=== PATIENT | female | born 1980 | race Caucasian/White ===

== ENCOUNTER 2017-03-09 14:46 | Emergency (ER) | payer SELFPAY ==
[~2017-03-09] VITALS: Ht 165.1 cm; Wt 74.0 kg
[~2017-03-09 14:46] MED LIST: ACYCLOVIR; FOLI0.4T2 PO; PREN1TAB49 PO
[2017-03-09 14:50] VITALS: Ht 165.1 cm; Wt 74.0 kg
== END 2017-03-09 16:55 | disposition left against medical advice (07) ==
LOC: E/R 14:46
DX: Z53.21 Procedure and treatment not carried out due to patient leaving prior to being seen by health care provider (principal)